=== PATIENT | male | born 1960 | race Caucasian/White ===

== ENCOUNTER 2016-10-08 05:11 | Inpatient (IN) ==
[2016-10-08 07:33] LABS: BASO% 0.2 % (0.0-0.8); EOS# 0.05 X1000 (0.0-0.7); EOS% 0.2 % (0.0-10.0); HEMATOCRIT 41.1 % (42.0-52.0); HEMOGLOBIN 13.7 g/dL (14.0-18.0); IMM GRAN% 0.4 % (0.0-0.5); LYMPH# 1.71 X1000 (1.2-3.4); LYMPH% 7.1 % (20.5-51.1); MCH 29.5 PG (27-31); MCHC 33.3 g/dL (33-37); MCV 88.4 FL (81-99); MONO# 1.26 X1000 (0.11-0.59); MONO% 5.3 % (1.7-9.3); MPV 9.5 FL (7.4-10.4); NEUT% 86.8 % (42.2-75.2); PLT 530 X1000 (130-400); RBC 4.65 XMIL (4.7-6.1)
[2016-10-08 07:36] LABS: MANUAL DIFF NEEDED? NO
[2016-10-08 07:39] LABS: AGAP 13; ALBUMIN 3.9 g/dL (3.5-5.0); ALKALINE PHOSPHATASE 80 U/L (32-122); BUN 10 mg/dL (8-22); CALCIUM 8.7 mg/dL (8.8-10.2); CHLORIDE 93 mmol/L (98-107); COSMO 273; GOT 18 U/L (10-34); GPT 15 U/L (10-44); POTASSIUM 3.3 mmol/L (3.5-5.1); SODIUM 136 mmol/L (136-145); TCO2 30 mmol/L (25-35); TOTAL PROTEIN 7.3 g/dL (6.3-8.3)
[2016-10-08] MEDS ORDERED: TYLENOL PO ONE (07:47)
[2016-10-08 08:03] LABS: URINE CULTURE PL NEEDED? NO; URINE SOURCE CLEAN CATCH
[2016-10-08 08:05] LABS: CLARITY CLEAR (CLEAR); COLOR YELLOW; URINE EPITHELIAL CELLS <10 /HPF (<10)
[2016-10-08 08:06] LABS: BILIRUBIN URINE NEGATIVE (NEGATIVE); BLOOD URINE NEGATIVE (NEGATIVE); GLUCOSE URINE NEGATIVE (NEGATIVE); LEUKOCYTES URINE NEGATIVE (NEGATIVE); NITRITE URINE NEGATIVE (NEGATIVE); PROTEIN URINE NEGATIVE (NEGATIVE); UROBILINOGEN URINE NORMAL
--- NOTE | 2016-10-08 08:50 | Diag Imaging Result Document ---
PROCEDURE NAME: ABDOMEN FLAT/UPRIGHT - 10/08/2016 SUPINE UPRIGHT ABDOMEN: FINDINGS: There is gas visible in mildly distended small bowel. There is gas visible in nondistended colon. There are multiple air fluid levels on the upright view. There is no indication of excessive retained fecal debris in the colon. There is no free air identified. IMPRESSION: Nonspecific mild gaseous small bowel distention. Enteritis may be a consideration. Correlation with clinical evaluation and/or followup is recommended.
[2016-10-08] MEDS ORDERED: NICODERM PATCH ONE (08:57)
[2016-10-08] MEDS ORDERED: NICODERM PATCH TD ONE (09:00)
--- NOTE | 2016-10-08 12:11 | Diag Imaging Result Document ---
PROCEDURE NAME: ABDOMEN/PELVIS W/CONTRAST - 10/08/2016 CT ABDOMEN AND PELVIS WITH CONTRAST: Exam performed with oral and intravenous contrast. A dose- reduction protocol was used. COMPARISON: No comparison exam. FINDINGS: The visualized lung bases appear clear. There are no substantial abnormalities of the liver, spleen, adrenal glands, or pancreas identified. There are no calcified gallstones or pericholecystic inflammation identified. The bilateral kidneys enhance homogeneously. There is a 0.9 cm solid-appearing nodular lesion which arises exophytically at the posterior medial lower left kidney. There is no hydronephrosis. There are no substantially enlarged lymph nodes identified. There are extensive inflammatory changes at and around the proximal sigmoid colon with wall thickening and infiltration of fat. There are multiple small gas bubbles and there are ill- defined fluid collections which extend from the posterior inflamed area at the proximal sigmoid colon superiorly and medially to the left lower quadrant. These findings are suspicious for sigmoid perforation with phlegmon or early abscess formation. There is no dominant or well- defined focal abscess identified at this time. There is no free intraperitoneal air identified elsewhere. IMPRESSION: Severe diverticulitis at proximal sigmoid colon. Evidence of sigmoid perforation with extraluminal gas and ill-defined fluid extending superiorly and medially from the inflamed sigmoid. The extraluminal gas and fluid is consistent with phlegmon or early abscess formation. There is no solitary well-defined dominant abscess identified at this time.
--- NOTE | 2016-10-08 13:36 | PROVIDER DOCUMENTATION ---
HPI-Abdominal Pain/GI Problem - General Source: patient - History of Present Illness-ABD Nature of Presenting Problems: Pt is 56 y/o M presents to the ED with abdominal pain. Pt states pain has been present for 3 days. Pt denies N/V/D. Abdominal Pain Onset Location: reports: generalized abdomen Pain Radiation: reports: no radiation Quality of Pain: reports: aching Severity in ED: reports: mild Onset/Duration: reports: 2 days ago, 3 days ago Timing: reports: still present, intermittent Activities at Onset: reports: light activity Exposure to sick contacts?: No Modifying Factors: improves with: nothing Associated Symptoms: reports: fever/chills (F). denies: anxiety, arm pain, back /neck pain, chest pain, constipation, cough, diaphoresis, diarrhea, dizziness, EENT symptoms, fatigue, genitourinary problems, headaches, heartburn, joint pain , loss of appetite, malaise, muscle aches, sinus congestion/drainage, nausea, rash, seizure, shortness of breath, sensory/motor loss, pain with inspiration, swelling/mass in abdomen, syncope, vomiting, weakness, trouble walking, other Last BM: this morning Dark Stools Present?: reports: none noticed Rectal Bleeding: reports: none Rectal Pain: reports: none Emesis Description: reports: none Bruising or Bleeding Gums?: No Similar Symptoms Previously?: Yes Recently seen or treated by another doctor?: No <Radha Kent - Last Filed: 10/08/16 13:38> <Edison Murphy - Last Filed: 10/08/16 13:41> - General Chief Complaint: Abdominal Pain Stated Complaint: ABD PAIN Time Seen by Provider: 10/08/16 06:55 Allergies/Adverse Reactions: Patient Allergies Allergy/AdvReac Type Severity Reaction Status Date / Time No Known Allergies Allergy Verified 10/08/16 05:27 Home Medications: Home Medication List Medication Instructions Recorded Confirmed Last Taken Type Omeprazole [Prilosec] 1 tab PO DIRECTED PRN 10/08/16 10/08/16 Unknown History Review of Systems - Adult - REVIEW OF SYSTEMS - ADULT Constitutional: reports: fever. denies: chills Eyes: reports: no symptoms reported Ears, Nose, Mouth & Throat: reports: no symptoms reported Cardiovascular: reports: irregular heart rate (tachy). denies: chest pain, heart murmur Respiratory: reports: no symptoms reported Gastrointestinal: reports: abdominal pain. denies: diarrhea, nausea, vomiting Genitourinary: reports: no symptoms reported Musculoskeletal: reports: no symptoms reported Integumentary: reports: no symptoms reported Neurological: reports: no symptoms reported Psychiatric: reports: no symptoms reported Endocrine: reports: no symptoms reported Hematologic/Lymphatic: reports: no symptoms reported Allergic/Immunologic: reports: no symptoms reported All Other Systems: Reviewed and Negative <Radha Kent - Last Filed: 10/08/16 13:38> Past History - Adult - PAST MEDICAL HISTORY-ADULT Review of Records: reports: Nursing Assessment Review, Medications Reviewed, Social history reviewed & non-contributory. Major Childhood Illnesses: reports: denies history Cardiovascular: reports: denies history Respiratory: reports: denies history Gastrointestinal: reports: denies history Obstetrical/Gynecological: reports: denies history Genitourinary: reports: denies history Musculoskeletal: reports: denies history Neurological: reports: denies history Endocrine/Immune: reports: denies history Other Conditions: reports: denies history - PRIOR SURGERIES/PROCEDURES Surgical/Procedure History: reports: appendectomy, orthopedic (extremity) (knee ), back/neck (back ) - IMMUNIZATION STATUS Childhood Immunizations: See Nurse Assessment Flu Vaccine: See Nurse Assessment - FAMILY HISTORY Family History: reviewed, not pertinent - SOCIAL HISTORY Smoking: cigarettes, greater than 1 pack/day Provider spent 3-5 mins advising pt. on dangers of tobacco.: Discussed manners to quit use, and f/u contacts for add'l counseling. Substance Use: denies Living Situation: family <Radha Kent - Last Filed: 10/08/16 13:38> Physical Exam-General - PHYSICAL EXAM-ADULT Initial Vital Signs Reviewed: Yes - CONSTITUTIONAL General Appearance: appears well, alert, mild distress - EYES Eyes: PERRL/EOMI, pink conjunctivae, fundi clear, no AV nicking - HEAD, EARS, NOSE, MOUTH & THROAT HENMT: normocephalic/atraumatic, moist mucous membranes, normal ENT inspection, TMs normal, pharynx normal - NECK Neck: non-tender, full range of motion, supple, normal inspection - RESPIRATORY Respiratory: chest non-tender, lungs clear, normal breath sounds, no pleuratic chest pain, no respiratory distress, no accessory muscle use - CARDIOVASCULAR Cardiovascular: normal peripheral pulses, no edema, no gallop, no JVD, no murmur - GASTROINTESTINAL (ABDOMEN) Abdominal Exam: normal bowel sounds, soft, no organomegaly, no pulsatile mass, tenderness - LYMPHATIC Lymphatic: no adenopathy - MUSCULOSKELETAL Back Exam: normal inspection, no CVA tenderness, no vertebral tenderness Extremity: normal range of motion, non-tender, normal gait, normal inspection, no pedal edema, no calf tenderness, normal capillary refill - SKIN Integumentary: normal color, normal turgor, warm/dry - NEUROLOGIC Neurologic: grossly normal - PSYCHIATRIC Psych/Mental Status: normal mood/affect, oriented x 3 <Radha Kent - Last Filed: 10/08/16 13:38> Progress - PLAN OF CARE/RESULTS Progress/Plan/Lab Results: Laboratory Tests 10/08/16 10/08/16 10/08/16 07:00 07:00 07:00 WBC 23.97 H RBC 4.65 L Hgb 13.7 L Hct 41.1 L MCV 88.4 MCH 29.5 MCHC 33.3 RDW Std Deviation 13.2 Plt Count 530 H MPV 9.5 Immature Gran % (Auto) 0.4 Neut % (Auto) 86.8 H Lymph % (Auto) 7.1 L [place] % (Auto) 5.3 Eos % (Auto) 0.2 Baso % (Auto) 0.2 Immature Gran # (Auto) 0.10 H Neut # (Auto) 20.80 H Lymph # (Auto) 1.71 [place] # (Auto) 1.26 H Eos # (Auto) 0.05 Baso # (Auto) 0.05 Segmented Neutrophils Cancelled Band Neutrophils Cancelled Lymphocytes Cancelled Monocytes Cancelled Eosinophils Cancelled Basophils Cancelled Metamyelocytes Cancelled Myelocytes Cancelled Promyelocytes Cancelled Nucleated RBCs Cancelled Atypical Lymphocytes Cancelled Blast Cells Cancelled Hypochromia Cancelled Vacuolization Cancelled Toxic Granulation Cancelled Dohle Bodies Cancelled Large Platelets Cancelled Polychromasia Cancelled Poikilocytosis Cancelled Basophilic Stippling Cancelled Anisocytosis Cancelled Microcytosis Cancelled Macrocytosis Cancelled Spherocytes Cancelled Sickle Cells Cancelled Target Cells Cancelled Ovalocytes Cancelled Stomatocytes Cancelled [place] Bodies Cancelled [place] Cells Cancelled Unidentified Cells Cancelled Schistocytes Cancelled Sodium 136 Potassium 3.3 L Chloride 93 L Carbon Dioxide 30 Anion Gap 13 BUN 10 Creatinine 0.9 Estimated GFR/1.73 m2 > 60 BUN/Creatinine Ratio 11 Glucose 130 H Calculated Osmolality 273 Calcium 8.7 L Total Bilirubin 1.00 AST 18 ALT 15 Alkaline Phosphatase 80 Total Protein 7.3 Albumin 3.9 Globulin 3.0 Albumin/Globulin Ratio 1.0 Amylase Lipase 23 Urine Source Urine Color Urine Clarity Urine Turbidity Urine pH Ur Specific [place] Urine Protein Ur Glucose (Stick) Urine Ketones Ur Ketones (Stick) Urine Blood Urine Nitrite Urine Bilirubin Urine Urobilinogen Urobilinogen Dipstick Urine Leukocytes Urine WBC (Auto) Urine RBC (Auto) U Epithel Cells (Auto) Urine Bacteria (Auto) Urine Microscopic RBC Urine WBC Ur Epithelial Cells Urine Glucose 10/08/16 10/08/16 10/08/16 07:00 07:03 07:53 WBC RBC Hgb Hct MCV MCH MCHC RDW Std Deviation Plt Count MPV Immature Gran % (Auto) Neut % (Auto) Lymph % (Auto) [place] % (Auto) Eos % (Auto) Baso % (Auto) Immature Gran # (Auto) Neut # (Auto) Lymph # (Auto) [place] # (Auto) Eos # (Auto) Baso # (Auto) Segmented Neutrophils Band Neutrophils Lymphocytes Monocytes Eosinophils Basophils Metamyelocytes Myelocytes Promyelocytes Nucleated RBCs Atypical Lymphocytes Blast Cells Hypochromia Vacuolization Toxic Granulation Dohle Bodies Large Platelets Polychromasia Poikilocytosis Basophilic Stippling Anisocytosis Microcytosis Macrocytosis Spherocytes Sickle Cells Target Cells Ovalocytes Stomatocytes [place] Bodies [place] Cells Unidentified Cells Schistocytes Sodium Potassium Chloride Carbon Dioxide Anion Gap BUN Creatinine Estimated GFR/1.73 m2 BUN/Creatinine Ratio Glucose Calculated Osmolality Calcium Total Bilirubin AST ALT Alkaline Phosphatase Total Protein Albumin Globulin Albumin/Globulin Ratio Amylase 61 Lipase Urine Source Cancelled CLEAN CATCH Urine Color Cancelled YELLOW Urine Clarity CLEAR Urine Turbidity Cancelled Urine pH Cancelled 7.0 Ur Specific [place] Cancelled 1.000 Urine Protein Cancelled NEGATIVE Ur Glucose (Stick) Cancelled Urine Ketones NEGATIVE Ur Ketones (Stick) Cancelled Urine Blood Cancelled NEGATIVE Urine Nitrite Cancelled NEGATIVE Urine Bilirubin Cancelled NEGATIVE Urine Urobilinogen NORMAL Urobilinogen Dipstick Cancelled Urine Leukocytes Cancelled Urine WBC (Auto) Cancelled Urine RBC (Auto) Cancelled U Epithel Cells (Auto) Cancelled Urine Bacteria (Auto) Cancelled Urine Microscopic RBC Not Reportable Urine WBC NEGATIVE Ur Epithelial Cells <10 Urine Glucose NEGATIVE Orders Category Date Time Status Admit - [facility] - [facility] Routine AdmDCTranf 10/08/16 13:28 Ordered NPO Diet 10/08/16 13:27 Active ABDOMEN FLAT/UPRIGHT [RAD] Stat Exams 10/08/16 07:03 Completed ABDOMEN/PELVIS W/CONTRAST [CT] Stat Exams 10/08/16 09:15 Draft AMYLASE [CHEM] Stat Lab 10/08/16 07:00 Completed CBC WITH ELECTRONIC DIFF [HEME] Stat Lab 10/08/16 07:00 Completed CHLAMYDIA AND GC BY PCR URINE [SRINIVASAN] Stat Lab 10/08/16 06:45 Received CMP [COMPREHENSIVE METABOLIC PANEL] [CHEM] Stat Lab 10/08/16 07:00 Completed LIPASE [CHEM] Stat Lab 10/08/16 07:[address] W/POSS RFLX CULT [URINALYSIS] Stat Lab 10/08/16 07:53 Completed Acetaminophen [Tylenol] Med 10/08/16 07:47 Discontinued 1,000 mg PO NOW ONE Nicotine Patch [Nicoderm Patch] Med 10/08/16 08:57 Discontinued 21 mg .ROUTE .STK-MED ONE Nicotine Patch [Nicoderm Patch] Med 10/08/16 09:00 Discontinued 21 mg TD NOW ONE Piperacil/Tazobact 3.375 gm/Ns [Zosyn 3.375 gm/Ns] 50 Med 10/08/16 14:00 Ordered ml IV Q6HR Transfer/Admit Order [TRANSFER] Routine Transfer 10/08/16 13:29 Ordered Vital Signs - 24 hr 10/08/16 10/08/16 10/08/16 05:19 07:46 09:00 Temperature 100 F H 101.3 F H 97.9 F Pulse Rate 116 H 119 H Respiratory 20 18 Rate Blood Pressure 112/76 129/74 O2 Sat by Pulse 100 96 Oximetry 10/08/16 12:34 Temperature 100 F H Pulse Rate 115 H Respiratory 22 Rate Blood Pressure 120/89 O2 Sat by Pulse 96 Oximetry - XRAY 1 XRAY: Bilateral XRAY Study: Abdomen Impression: Abnormal (enteritis may be a consideration. correlation with clinical evaluation and/or followup is recommended.) XRAY Interpretation: nonspecific mild gaseous small bowel distention. - CT/MRI 1 CT Study: Abdomen Impression: Abnormal (evidence of perforation with ill-defined extraluminal gas and fluid extending above sigmoid to LLQ) CT Results: severe diverticulitis at proximal sigmoid colon; - CONSULTS/PCP/HOSPITALIST Notification #1 *Consult/PCP/Hospitalist*: Dr. Carrasquillo Time Discussed: 13:30 (Dr. Carrasquillo accepted admit ) Reason/Comments: Dr. Murphy consulted with Dr. Carrasquillo about admit of Pt Consult Disposition: Admit <Radha Kent - Last Filed: 10/08/16 13:38> Departure <Radha Kent - Last Filed: 10/08/16 13:38> - Departure Time of Disposition Order: 13:41 Certified Medical Emergency: Emergent <Edison Murphy - Last Filed: 10/08/16 13:41> - Departure DIAGNOSIS: Diverticulitis large intestine Qualifiers: Diverticulitis bleeding: without bleeding Diverticulitis complication: with perforation Qualified Code(s): K57.20 - Diverticulitis of large intestine with perforation and abscess without bleeding Disposition: ADMITTED INPATIENT 09 Condition: Stable Referrals: None,PCP [Primary Care Provider] - Attestation - Scribe Verification/Attestation Scribe:: Radha Kent Acting as Scribe for:: Edison Murphy Scribe documention review:: This chart was documented by a scribe and accurately reflects the service the provider performed and the decisions made by the provider. <Radha Kent - Last Filed: 10/08/16 13:38> Physician Attestation
[2016-10-08] MEDS ORDERED: ZOSYN 3.375 GM/NS 50 ML IV SCH (14:00)
[2016-10-08] MEDS: NS 1,000 ML IV ONE ×2 (17:52→18:47)
[2016-10-08] MEDS ORDERED: NS 1,000 ML IV SCH (19:00)
--- NOTE | 2016-10-08 19:07 | HISTORY AND PHYSICAL ---
CHIEF COMPLAINT: Abdominal pain. HISTORY: This is a 56-year-old white male who reports a 2-week history of abdominal pain as well as fever. Today it got so bad that he came in for evaluation to [facility]. He does report abdominal pain with a 2-week history of intermittent fever over 100. CT scan shows a diverticular abscess. He does report diminished appetite but he has been able to eat some. His bowels have moved some. HOME MEDICATIONS: Include Prilosec. ALLERGIES: He has no known drug allergies. PAST SURGICAL HISTORY: He had a previous open appendectomy. He also had a knee operation and a back neck operation. FAMILY HISTORY: Noncontributory. SOCIAL HISTORY: He does smoke greater than a pack a day. He denies alcohol or illicit drug use. REVIEW OF SYSTEMS: He does report chills. He does report abdominal pain. He denies diarrhea, nausea or vomiting. All other subsystems are negative. PHYSICAL EXAMINATION: VITAL SIGNS: Temp is 100.3 degrees, heart rate is in the 120-160 range, blood pressure is 115/78. NECK: No cervical adenopathy. LUNGS: Bilateral breath sounds. HEART: Regular rate and rhythm. He is tachycardic. ABDOMEN: He is diffusely tender especially in the left lower quadrant. VASCULAR: Rebound femoral pulses are present. No peripheral edema. NEUROLOGIC: He is awake and alert. DIAGNOSTICS/LABS: White count is 24,000, left shift. ASSESSMENT: Acute diverticulitis with abscess and peritonitis. PLAN: Laparotomy with resection of the diseased segment of colon, end colostomy and Barb's. We will drain the abscess as well. I discussed this with him. He understands and agrees to proceed.
[2016-10-08] MEDS: ZOSYN 3.375 GM/NS 50 ML IV SCH (19:45)
[2016-10-08] MEDS ORDERED: NEOSPORIN G.U. IRRIGANT ONE (20:17)
[2016-10-08 20:44] LABS: URINE MICRO REVIEW NEEDED? NO; URINE SOURCE CATH
[2016-10-08 20:56] LABS: BILIRUBIN URINE NEGATIVE (NEGATIVE); BLOOD URINE NEGATIVE (NEGATIVE); COLOR YELLOW; GLUCOSE URINE NEGATIVE (NEGATIVE); LEUKOCYTES URINE NEGATIVE (NEGATIVE); NITRITE URINE NEGATIVE (NEGATIVE); PH URINE 6.5; PROTEIN URINE NEGATIVE (NEGATIVE); SP GRAVITY URINE 1.017; TURBIDITY URINE CLEAR (CLEAR); UROBILINOGEN URINE NORMAL (NORMAL)
[2016-10-08 20:59] LABS: UR EPITHELIAL CELLS <10 /HPF (<10); URINE BACTERIA NEGATIVE /HPF; URINE RBC <10 /HPF (<10); URINE WBC <10 /HPF (<10)
[2016-10-08] MEDS ORDERED: TYLENOL PO PRN (21:13)
[2016-10-08] MEDS: MORPHINE ONE ×2 (21:20→21:25)
[2016-10-08] MEDS ORDERED: FENTANYL ONE (21:28)
[2016-10-08] MEDS ORDERED: PHENERGAN ONE (21:31)
[2016-10-08] MEDS: NS 1,000 ML IV SCH (22:15)
[2016-10-08] MEDS: PROTONIX IV SCH (23:02)
[2016-10-08] MEDS: SODIUM CHLORIDE 0.9% INJ SCH (23:02)
[2016-10-08] MEDS: DILAUDID IV PRN (23:33)
[2016-10-09] MEDS: ZOSYN 3.375 GM/NS 50 ML IV SCH ×4 (02:09→20:29)
[2016-10-09] MEDS: DILAUDID IV PRN ×7 (04:16→23:31)
--- NOTE | 2016-10-09 04:34 | OPERATIVE NOTE ---
PROCEDURE DATE: 10/08/2016 PROCEDURE PERFORMED: Exploratory laparotomy, sigmoid colon resection, construction of end colostomy in the Barb's pouch, drainage of intra-abdominal abscess. SURGEON: Lizandro Carrasquillo MD. PAIL BAILER: Felipa Eason RN. PREOPERATIVE DIAGNOSIS: Diverticular abscess. POSTOPERATIVE DIAGNOSIS: Diverticular abscess. DESCRIPTION OF PROCEDURE: Satisfactory general endotracheal anesthesia was achieved. The abdomen was prepped and draped in a sterile fashion. A midline incision was made from just above the umbilicus down to the pubis. We carried our incision through the subcutaneous tissue. We entered the midline fascia to the extent of the skin incision. Upon entering the abdominal cavity, we noted the sigmoid to be obviously diseased, swollen, and indurated. We incised along the white line of Toldt and entered the abscess cavity and then suctioned out the cavity. We cultured the peritoneal fluid. We then dissected distally to the distal sigmoid. Here, we cleaned off the sigmoid, used a SAVANNAH blue cartridge 80 mm long, and stapled and divided the distal sigmoid. We then dissected the small bowel away from the sigmoid because of the inflammatory process. We continued to dissect along the white line of Toldt until we got above the diseased segment and again cleaned it off using the LigaSure and the cautery, and then stapled that with another SAVANNAH 80 blue cartridge. We then divided the mesentery using the LigaSure until we could hand off the diseased sigmoid segment. We placed 2-0 Prolene on each of the staple lines of our Barb's pouch to yenni it for future reference. We then copiously irrigated out the sigmoid mesentery area with irrigation and plain irrigation. We cleaned off the proximal sigmoid enough that we could deliver it in through the abdominal wall as the stoma. I changed gloves at this point. We grasped the fascia with a No. We grasped the skin with a No in the left mid abdomen and excised an island of skin. We then dissected down to the fascia, incised the anterior rectus sheath vertically and transversely, spread the fibers of the rectus muscle, divided the posterior rectus sheath, and entered the abdominal cavity. We then introduced a small wound protecting device. We were able to grasp the end of the proximal descending colon and bring it through the stoma without tension. We removed the wound closure device. We placed a Saw drain first, bringing it out the left lower quadrant, placing it into the left gutter along the sigmoid colon resected area. We then closed the peritoneum with a 2-0 chromic. We closed the fascia with a running #2 Prolene. Irrigated out the subcutaneous tissue copiously. Closed the skin with joshua. We covered the staple line with a sterile towel. We then excised the staple line of the end of the sigmoid. I then matured it with 3-0 Polysorb simple stitches, approximating the mucosa to the skin edge. We placed a flange over the skin around the stoma and then placed the bag over that. A sterile island dressing was placed on the midline. I failed to mention that 2-0 silk was used to secure the skin of the drain at the skin level. He tolerated the procedure satisfactorily and was sent to the recovery room in satisfactory condition. MTDD
[2016-10-09] MEDS: NS 1,000 ML IV SCH ×2 (06:17→14:06)
[2016-10-09 06:40] LABS: HEMATOCRIT 37.6 % (42.0-52.0); HEMOGLOBIN 12.4 g/dL (14.0-18.0); IMM GRAN# 0.06 X1000 (0.0-0.04); IMM GRAN% 0.3 % (0.0-0.5); LYMPH# 0.69 X1000 (1.2-3.4); LYMPH% 3.2 % (20.5-51.1); MANUAL DIFF NEEDED? YES; MCH 29.7 PG (27-31); MCV 90.2 FL (81-99); MONO# 0.45 X1000 (0.11-0.59); MONO% 2.1 % (1.7-9.3); MPV 9.9 FL (7.4-10.4); NEUT% 94.4 % (42.2-75.2); PLT 433 X1000 (130-400); RBC 4.17 XMIL (4.7-6.1)
[2016-10-09 07:15] LABS: AGAP 14; ALKALINE PHOSPHATASE 82 U/L (32-122); BUN 13 mg/dL (8-22); CALCIUM 7.7 mg/dL (8.8-10.2); CHLORIDE 100 mmol/L (98-107); COSMO 287; GOT 13 U/L (10-34); GPT 12 U/L (10-44); POTASSIUM 3.4 mmol/L (3.5-5.1); SODIUM 142 mmol/L (136-145); TCO2 28 mmol/L (25-35); TOTAL BILIRUBIN 1.03 mg/dL (0.20-1.00)
[2016-10-09 07:41] LABS: BANDS 4 % (0-1); LYMPHS 2 % (21-51); MONO 1 % (1-9)
[2016-10-09] MEDS ORDERED: QUELICIN (DOSE) ONE (09:55)
[2016-10-09] MEDS ORDERED: NEOSTIGMINE ONE (09:55)
[2016-10-09] MEDS ORDERED: CLAVE SECONDARY SET 11953 ONE (09:55)
[2016-10-09] MEDS ORDERED: ZEMURON ONE (09:55)
[2016-10-09] MEDS ORDERED: ZOFRAN ONE (09:55)
[2016-10-09] MEDS ORDERED: NORCURON ONE (09:55)
[2016-10-09] MEDS ORDERED: XYLOCAINE-MPF 2% ONE (09:55)
[2016-10-09] MEDS ORDERED: LR 3,000 ML ONE (09:55)
[2016-10-09] MEDS ORDERED: ROBINUL ONE (09:55)
[2016-10-09] MEDS ORDERED: ANESTHESIA PB SET 88 IN 5742 ONE (09:55)
[2016-10-09] MEDS ORDERED: DECADRON ONE (09:55)
[2016-10-09] MEDS: NICODERM PATCH TD SCH (14:51)
[2016-10-09] MEDS: NS + KCL 20 MEQ 1,000 ML IV SCH (14:55)
[2016-10-09] MEDS: PROTONIX IV SCH (20:31)
[2016-10-09] MEDS: SODIUM CHLORIDE 0.9% INJ SCH (20:31)
[2016-10-10] MEDS: NS + KCL 20 MEQ 1,000 ML IV SCH ×3 (01:29→15:29)
[2016-10-10] MEDS: ZOSYN 3.375 GM/NS 50 ML IV SCH ×4 (01:29→21:59)
[2016-10-10] MEDS: DILAUDID IV PRN ×3 (02:40→17:57)
[2016-10-10 05:52] LABS: HEMATOCRIT 35.7 % (42.0-52.0); HEMOGLOBIN 11.8 g/dL (14.0-18.0); IMM GRAN# 0.09 X1000 (0.0-0.04); IMM GRAN% 0.4 % (0.0-0.5); LYMPH# 1.24 X1000 (1.2-3.4); LYMPH% 5.3 % (20.5-51.1); MANUAL DIFF NEEDED? NO; MCHC 33.1 g/dL (33-37); MCV 90.8 FL (81-99); MONO# 0.81 X1000 (0.11-0.59); MONO% 3.5 % (1.7-9.3); MPV 9.7 FL (7.4-10.4); NEUT% 90.8 % (42.2-75.2); PLT 442 X1000 (130-400); RBC 3.93 XMIL (4.7-6.1)
[2016-10-10 06:09] LABS: AGAP 13; BUN 17 mg/dL (8-22); CHLORIDE 107 mmol/L (98-107); COSMO 290; POTASSIUM 3.4 mmol/L (3.5-5.1); SODIUM 145 mmol/L (136-145); TCO2 25 mmol/L (25-35)
[2016-10-10] MEDS: NICODERM PATCH TD SCH (08:18)
[2016-10-10] MEDS: SODIUM CHLORIDE 0.9% INJ SCH (21:58)
[2016-10-10] MEDS: PROTONIX IV SCH (21:59)
[2016-10-11] MEDS: DILAUDID IV PRN ×3 (00:03→17:30)
[2016-10-11] MEDS: ZOSYN 3.375 GM/NS 50 ML IV SCH ×4 (01:03→20:21)
[2016-10-11] MEDS: NS + KCL 20 MEQ 1,000 ML IV SCH ×2 (01:04→20:22)
[2016-10-11 06:02] LABS: MANUAL DIFF NEEDED? NO
[2016-10-11 06:18] LABS: BASO% 0.2 % (0.0-0.8); EOS# 0.12 X1000 (0.0-0.7); EOS% 1.1 % (0.0-10.0); HEMATOCRIT 37.2 % (42.0-52.0); HEMOGLOBIN 12.1 g/dL (14.0-18.0); LYMPH# 1.93 X1000 (1.2-3.4); LYMPH% 17.4 % (20.5-51.1); MCH 29.9 PG (27-31); MCHC 32.5 g/dL (33-37); MCV 91.9 FL (81-99); MONO# 0.71 X1000 (0.11-0.59); MONO% 6.4 % (1.7-9.3); MPV 9.6 FL (7.4-10.4); NEUT% 74.9 % (42.2-75.2); PLT 455 X1000 (130-400); RBC 4.05 XMIL (4.7-6.1)
[2016-10-11 06:27] LABS: AGAP 13; BUN 9 mg/dL (8-22); CALCIUM 7.6 mg/dL (8.8-10.2); CHLORIDE 102 mmol/L (98-107); COSMO 282; POTASSIUM 3.3 mmol/L (3.5-5.1); SODIUM 142 mmol/L (136-145); TCO2 27 mmol/L (25-35)
[2016-10-11] MEDS: NICODERM PATCH TD SCH (08:19)
[2016-10-11] MEDS: PROTONIX IV SCH (20:21)
[2016-10-11] MEDS: SODIUM CHLORIDE 0.9% INJ SCH (20:22)
[2016-10-12] MEDS: ZOSYN 3.375 GM/NS 50 ML IV SCH ×4 (01:51→19:55)
[2016-10-12] MEDS: DILAUDID IV PRN (03:24)
[2016-10-12 06:21] LABS: MANUAL DIFF NEEDED? NO
[2016-10-12 06:29] LABS: BASO% 0.4 % (0.0-0.8); EOS# 0.25 X1000 (0.0-0.7); EOS% 2.6 % (0.0-10.0); HEMATOCRIT 40.1 % (42.0-52.0); HEMOGLOBIN 12.9 g/dL (14.0-18.0); LYMPH# 1.92 X1000 (1.2-3.4); LYMPH% 20.2 % (20.5-51.1); MCH 29.3 PG (27-31); MCHC 32.2 g/dL (33-37); MCV 91.1 FL (81-99); MONO# 0.51 X1000 (0.11-0.59); MONO% 5.4 % (1.7-9.3); MPV 9.5 FL (7.4-10.4); NEUT% 71.4 % (42.2-75.2); PLT 544 X1000 (130-400)
[2016-10-12] MEDS: NICODERM PATCH TD SCH (08:19)
[2016-10-12] MEDS: NS + KCL 20 MEQ 1,000 ML IV SCH ×2 (08:26→22:45)
[2016-10-12] MEDS: LOVENOX SUBQ SCH ×2 (19:55→21:53)
[2016-10-12] MEDS: NORCO-7.5 PO PRN (22:44)
[2016-10-13] MEDS: ZOSYN 3.375 GM/NS 50 ML IV SCH ×4 (03:10→23:25)
[2016-10-13] MEDS: NORCO-7.5 PO PRN ×2 (03:15→23:25)
[2016-10-13] MEDS: PRILOSEC PO SCH (06:28)
--- NOTE | 2016-10-13 10:06 | PROGRESS NOTE ---
DATE: 10/13/2016 SUBJECTIVE: Patient doing well. Tolerated his diet. No major issues. OBJECTIVE: Vital Signs: Patient is currently afebrile. His vital signs have been stable. General: No acute distress. Resting comfortably. Cardiovascular: Regular rate and rhythm. Lungs: Grossly clear. Abdomen: Soft, nondistended. Appropriately tender. Ostomy functioning. Incision is healing well. ASSESSMENT AND PLAN: A 56-year-old male, postoperative day #5 from Barb's procedure for perforated diverticulitis. Postoperative state. At this time, patient's diet has been advanced. His drain has been removed. We will likely keep him on antibiotics for another 24 hours and potentially transfer him over to p.o. antibiotics and discharge him soon. cc: MD Lizandro Thomas MD MTDD
[2016-10-13] MEDS: NICODERM PATCH TD SCH (11:20)
[2016-10-13] MEDS: NS + KCL 20 MEQ 1,000 ML IV SCH (11:20)
[2016-10-13] MEDS: LOVENOX SUBQ SCH (23:25)
[2016-10-14] MEDS: ZOSYN 3.375 GM/NS 50 ML IV SCH (04:02)
[2016-10-14] MEDS: NORCO-7.5 PO PRN (04:02)
[2016-10-14] MEDS: NS + KCL 20 MEQ 1,000 ML IV SCH (04:02)
[2016-10-14] MEDS: PRILOSEC PO SCH (06:54)
--- NOTE | 2016-10-14 07:15 | PROGRESS NOTE ---
DATE: 10/14/2016 SUBJECTIVE: Patient doing well. Tolerating a diet. No major issues. OBJECTIVE: Vital Signs: Patient is currently afebrile. His vital signs have been stable. General Examination: No acute distress. Cardiovascular: Regular rate and rhythm. Lungs: Grossly clear. Abdomen: Soft, nondistended. Appropriately tender. Ostomy functioning. Incision healing well. ASSESSMENT AND PLAN: A 56-year-old male, status post Barb's procedure for perforated diverticulitis. Currently postoperative day #6. Postoperative state. At this time, the patient's diet has been advanced. He is tolerating a regular diet. His ostomy is functioning. He feels content taking care of his ostomy. We will discharge him on antibiotics, have him follow up with Dr. Carrasquillo in 1-2 weeks. I will send him home on Augmentin and pain medicine. cc: MD Lizandro Thomas MD
[2016-10-14] MEDS: NICODERM PATCH TD SCH (08:24)
[2016-10-14 08:26] VITALS: BP 130/91
--- NOTE | 2016-10-16 02:03 | DISCHARGE SUMMARY ---
ADMISSION DATE: 10/08/2016 DISCHARGE DATE: 10/14/2016 PRIMARY DISCHARGE DIAGNOSIS: Acute diverticulitis with perforation, and diverticular abscess. PRIMARY PROCEDURES: Exploratory laparotomy, sigmoid colon resection, construction of end colostomy and a Barb's pouch. HISTORY: A 56-year-old gentleman, presenting to the emergency department at [facility], with a 2- week history of abdominal pain and fever. CT scan showed a diverticular abscess with some free air. DIAGNOSTICS/LABS: White count was 24,000 on admission. After admission, he was taken to the operating room and underwent the above procedure. Postoperatively, maintained on Zosyn, a drain was left in place. He used a nicotine patch for his nicotine addiction. His Pepper was removed on the 2nd postoperative day. We started on clear liquids. The ET nurse was consulted, and saw him about his colostomy care. We did advance his diet subsequently. On 10/12, on postop day 4, able to remove his drain. White count a come down to 9,500. By 10/14, he was ready for discharge. He was eating. His colostomy was functioning. His wound was fine. He knew how to take care of his colostomy. DISCHARGE MEDICATION: He was discharged home on Augmentin. FOLLOWUP: He is to return to the office and see me in a week. cc: Lizandro Carrasquillo MD
== END 2016-10-14 08:35 | disposition home or self-care (01) ==
LOC: P.ED 05:11 → P.EDIPHOLD 13:54 → 4N 13:54
PROVIDERS: ADMIT Surgery; ATTEND Surgery

== ENCOUNTER 2019-01-07 11:10 | Inpatient (IN) ==
--- NOTE | 2018-12-30 14:13 | EKG Report ---
Test Performed on : 12/30/2018 1:54:29 PM Test Reason : PAT Blood Pressure : / mmHG Vent. Rate : 073 BPM Atrial Rate : 073 BPM P-R Int : 184 ms QRS Dur : 086 ms QT Int : 362 ms P-R-T Axes : 063 035 082 degrees QTc Int : 398 ms Normal sinus rhythm. Nonspecific T wave abnormality Abnormal ECG No previous ECGs available Confirmed by Braxton KANG, Marvel Kohli ([id number]) on 12/30/2018 7:30:14 PM
[2018-12-30 14:25] LABS: HEMATOCRIT 44.8 % (42.0-52.0); HEMOGLOBIN 15.1 g/dL (14.0-18.0); MCH 30.1 PG (27-31); MCHC 33.7 g/dL (33-37); MCV 89.4 FL (81-99); MPV 9.6 FL (7.4-10.4); RBC 5.01 XMIL (4.7-6.1); RDW 13.4 % (11.5-14.5); WBC 7.88 X1000 (4.8-10.8)
[2018-12-30 15:12] LABS: AGAP 12; BUN 13 mg/dL (8-22); CALCIUM 9.5 mg/dL (8.8-10.2); CHLORIDE 100 mmol/L (98-107); COSMO 288; ESTIMATED GFR > 60; GLUCOSE 217 mg/dL (70-104); POTASSIUM 4.1 mmol/L (3.5-5.1); SODIUM 141 mmol/L (136-145); TCO2 29 mmol/L (25-35)
[~2019-01-07 11:10] MED LIST: DIPRIVAN 1% ONE; NORCURON ONE; QUELICIN (DOSE) ONE; SODIUM CHLORIDE 0.9% 10 ML ONE; XYLOCAINE-MPF 2% ONE
[2019-01-07] MEDS ORDERED: ENTEREG ONE (12:15)
[2019-01-07] MEDS ORDERED: PEPCID ONE (12:15)
[2019-01-07] MEDS ORDERED: VALIUM ONE (12:16)
[2019-01-07] MEDS ORDERED: INVANZ 1 GM/NS 0 GM/0 ML IVPB ONE (12:16)
[2019-01-07] MEDS ORDERED: LR 1,000 ML ONE (12:16)
[2019-01-07] MEDS ORDERED: INVANZ 1 GM/NS 1 GM/50 ML IVPB ONE (12:18)
[2019-01-07] MEDS ORDERED: MORPHINE ONE (13:37)
[2019-01-07] MEDS ORDERED: TORADOL ONE (13:37)
[2019-01-07] MEDS ORDERED: SODIUM CHLORIDE 0.9% 10 ML ONE (13:41)
[2019-01-07] MEDS ORDERED: NEO-SYNEPHRINE ONE (13:41)
[2019-01-07] MEDS ORDERED: NORCURON ONE (13:55)
[2019-01-07] MEDS ORDERED: OFIRMEV 1000 MG/ISOTONIC SOLN 1,000 MG/100 ML BOTTLE ONE (14:01)
[2019-01-07 14:12] LABS: URINE SOURCE CATH
[2019-01-07 14:18] LABS: BILIRUBIN URINE NEGATIVE (NEGATIVE); BLOOD URINE NEGATIVE (NEGATIVE); COLOR YELLOW; GLUCOSE URINE 500 mg/dL (NEGATIVE); KETONE URINE NEGATIVE (NEGATIVE); LEUKOCYTES URINE NEGATIVE (NEGATIVE); NITRITE URINE NEGATIVE (NEGATIVE); PROTEIN URINE TRACE mg/dL (NEGATIVE); SP GRAVITY URINE 1.021; TURBIDITY URINE CLEAR (CLEAR); UR EPITHELIAL CELLS <10 /HPF (<10); URINE BACTERIA NEGATIVE /HPF; URINE RBC <10 /HPF (<10); URINE WBC <10 /HPF (<10); UROBILINOGEN URINE NORMAL (NORMAL)
[2019-01-07] MEDS ORDERED: ROBINUL ONE (14:40)
[2019-01-07] MEDS ORDERED: NEOSTIGMINE ONE (14:41)
[2019-01-07] MEDS ORDERED: NS 1,000 ML ONE (15:44)
[2019-01-07] MEDS: DILAUDID ONE ×4 (15:47→16:23)
--- NOTE | 2019-01-07 15:57 | OPERATIVE NOTE ---
DATE: 01/07/2019 PROCEDURE PERFORMED: Open closure of end colostomy. SURGEON: Lizandro Carrasquillo MD. TELETYPEWRITER INSTALLER: Dada Tapia RN. 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 DESCRIPTION OF PROCEDURE: Satisfactory general endotracheal anesthesia was achieved, the patient was placed in Marvel stirrups. We closed the stoma with a 3-0 Prolene stitch. The abdomen was then prepped and draped in a sterile fashion. An Ioban drape was used. We made a midline incision from above the umbilicus down to the pubis. We carried our incision through the subcutaneous fat, through the midline fascia, entering the abdominal cavity. We removed the previously-placed Prolene fascial stitches. On opening the abdominal cavity, we placed the patient in Trendelenburg. We lysed adhesions in the pelvis, attaching the omentum from the anterior abdominal wall, and incising adhesions from the small bowel to the pelvis. We identified the Barb's pouch and identified the Prolene stitches on it. We then used a Bookwalter retractor and positioned it. We placed lateral abdominal wall retractors and 1 inferiorly. We then dissected over to the stoma and used a SAVANNAH-60 blue cartridge to staple and divide the stoma right as it entered the abdominal wall. We then replaced our lateral retractor. We incised the adhesions between the descending colon so that would lay down toward the distal sigmoid in the pelvis. We then cleaned off the end of the colon of the Barb's pouch. We cleaned off the end of the proximal bowel as well. We then used 3-0 silk seromuscular stitches posteriorly. Cut off the staple lines of both bowel and then used a 3-0 Polysorb running locking stitch posteriorly, changed to a Jack stitch anteriorly. Then, finally 3-0 silks in the Lembert fashion; this thereby finished an end-to-end 2-layer anastomosis. We changed gloves at this point. I decided to use a Saw drain in the wound; brought it out the right lower quadrant and laid it in the pelvis. We irrigated and aspirated. The effluent was clear. We then took the patient out of Trendelenburg. We allowed the small bowel to fall back to its normal position. We removed the laps. We then closed the peritoneum with a 2-0 chromic. We closed the fascia with the running #2 Prolene. The skin was closed with joshua. We covered the midline staple line, exposed the left lower quadrant stoma. We then incised the stoma at the mucocutaneous junction. After circumferentially making this incision, we then excised the stoma and handed it off as a specimen. We then closed the abdominal wall with interrupted 0 Surgilon [id number] stitches. We copiously irrigated out subcutaneous tissue, then closed the subcutaneous tissue with 3-0 Polysorb simple stitches and then closed the skin with joshua transversely. A sterile dressing was applied there as well. Tolerated the procedure satisfactorily. Sent to the recovery room in satisfactory condition. cc: Lizandro Carrasquillo MD
[2019-01-07] MEDS ORDERED: PHENERGAN ONE (16:09)
[2019-01-07] MEDS: LOVENOX SUBQ SCH (18:33)
[2019-01-07] MEDS: NS 1,000 ML IV SCH (18:42)
[2019-01-07] MEDS: DILAUDID IV PRN (20:02)
[2019-01-07] MEDS: PERIDEX MT SCH (20:02)
[2019-01-07] MEDS: LIPITOR PO SCH (20:02)
[2019-01-07] MEDS ORDERED: PERIDEX MT SCH (21:00)
[2019-01-07] MEDS: ZOFRAN IV PRN (22:20)
[2019-01-07] MEDS: OFIRMEV 1000 MG/ISOTONIC SOLN 1,000 MG/100 ML BOTTLE IV SCH (22:20)
[2019-01-08] MEDS: NS 1,000 ML IV SCH ×3 (01:48→13:43)
[2019-01-08] MEDS: DILAUDID IV PRN ×4 (01:48→15:15)
[2019-01-08] MEDS: OFIRMEV 1000 MG/ISOTONIC SOLN 1,000 MG/100 ML BOTTLE IV SCH ×3 (04:47→16:31)
[2019-01-08 06:14] LABS: BASO# 0.03 X1000 (0.0-0.2); BASO% 0.2 % (0.0-0.8); EOS# 0.05 X1000 (0.0-0.7); EOS% 0.4 % (0.0-10.0); HEMATOCRIT 40.4 % (42.0-52.0); HEMOGLOBIN 13.7 g/dL (14.0-18.0); IMM GRAN# 0.02 X1000 (0.0-0.04); IMM GRAN% 0.2 % (0.0-0.5); LYMPH# 1.53 X1000 (1.2-3.4); LYMPH% 12.6 % (20.5-51.1); MCH 30.2 PG (27-31); MCHC 33.9 g/dL (33-37); MCV 89.2 FL (81-99); MONO# 0.72 X1000 (0.11-0.59); MPV 10.2 FL (7.4-10.4); NEUT# 9.75 X1000 (1.4-6.5); NEUT% 80.6 % (42.2-75.2); PLT 188 X1000 (130-400); RBC 4.53 XMIL (4.7-6.1); RDW 13.5 % (11.5-14.5)
[2019-01-08] MEDS: SYNTHROID PO SCH (06:26)
[2019-01-08 06:35] LABS: AGAP 12; BUN 10 mg/dL (8-22); CALCIUM 8.1 mg/dL (8.8-10.2); CHLORIDE 100 mmol/L (98-107); COSMO 280; ESTIMATED GFR > 60; GLUCOSE 156 mg/dL (70-104); POTASSIUM 3.5 mmol/L (3.5-5.1); SODIUM 139 mmol/L (136-145); TCO2 27 mmol/L (25-35)
[2019-01-08] MEDS ORDERED: ENTEREG PO SCH (09:00)
[2019-01-08] MEDS: PERIDEX MT SCH ×2 (10:48→20:44)
[2019-01-08] MEDS: CLINORIL PO SCH (10:48)
[2019-01-08] MEDS: ZOFRAN IV PRN (10:48)
[2019-01-08] MEDS ORDERED: ENTEREG PO ONE (12:10)
[2019-01-08] MEDS: ENTEREG PO SCH ×2 (13:43→20:45)
--- NOTE | 2019-01-08 14:14 | GENERAL SURGERY PROGRESS NOTE ---
DATE: 01/08/2019 SUBJECTIVE: He is postoperative day 1 after open closure of his colostomy. He has been minimally nauseated. Denies vomiting. OBJECTIVE: He is afebrile, heart rate 109. Saw drain is serous in appearance. 60 mL is present. He is making urine satisfactorily. DIAGNOSTIC STUDIES: White count 12,000, hemoglobin 13.7. Chemistry is fine. PLAN: To reduce his IV to 80. Continue with good pulmonary toilet. He is not yet ready for p.o. intake. cc: Lizandro Carrasquillo MD
[2019-01-08] MEDS: LOVENOX SUBQ SCH ×2 (16:34→18:20)
[2019-01-08] MEDS: XOPENEX NEB INH PRN (17:59)
[2019-01-08] MEDS: LIPITOR PO SCH (20:44)
[2019-01-09] MEDS: DILAUDID IV PRN ×3 (01:27→17:54)
[2019-01-09] MEDS: NS 1,000 ML IV SCH ×2 (01:28→14:30)
[2019-01-09] MEDS: SYNTHROID PO SCH (06:28)
[2019-01-09] MEDS: XOPENEX NEB INH PRN ×4 (08:02→19:30)
[2019-01-09] MEDS: PERIDEX MT SCH ×2 (10:41→20:48)
[2019-01-09] MEDS: CLINORIL PO SCH (10:41)
[2019-01-09] MEDS: ENTEREG PO SCH ×2 (10:41→20:48)
--- NOTE | 2019-01-09 11:28 | GENERAL SURGERY PROGRESS NOTE ---
DATE: 01/09/2019 SUBJECTIVE: Mr. Taylor was doing generally well. His temperature is 99.1 degrees, heart rate is about 120, blood pressure 136/83. His lungs sound better today. His abdomen is distended. He has no bowel activity as of yet. His drain is serous. ASSESSMENT: Postoperative ileus persists. We will wait for resolution of his ileus before beginning on clear liquids. Dr. Estrada was available for the weekend. cc: Lizandro Carrasquillo MD
[2019-01-09] MEDS: ZOFRAN IV PRN (12:02)
[2019-01-09] MEDS: LOVENOX SUBQ SCH (17:29)
[2019-01-09] MEDS: LIPITOR PO SCH (20:48)
[2019-01-10] MEDS: DILAUDID IV PRN ×5 (03:36→23:31)
[2019-01-10] MEDS: ZOFRAN IV PRN ×2 (03:36→14:39)
[2019-01-10] MEDS: NS 1,000 ML IV SCH ×2 (07:00→23:31)
[2019-01-10] MEDS: SYNTHROID PO SCH (07:00)
[2019-01-10] MEDS: XOPENEX NEB INH PRN ×4 (08:11→19:16)
[2019-01-10] MEDS: ENTEREG PO SCH ×2 (10:30→21:21)
[2019-01-10] MEDS: PERIDEX MT SCH ×2 (10:30→21:21)
[2019-01-10] MEDS: CLINORIL PO SCH (10:30)
--- NOTE | 2019-01-10 10:53 | PROGRESS NOTE ---
DATE: 01/10/2019 SUBJECTIVE: Mr. Elijah Taylor is a 58-year-old white male patient Dr. Carrasquillo who 3 days ago underwent a colostomy takedown. This morning, his abdomen is distended but he is moving around. He does have a drain which is draining just serosanguineous fluid. OBJECTIVE: His heart rate is 108, blood pressure 152/83, O2 saturation 95% on 2 L nasal cannula O2. His T-max is 99 degrees. He has had no flatus or bowel movement and remains n.p.o. except ice chips. PLAN: We will continue ice chips. Increase his activity. Leave his drains for today. His Pepper has been discontinued. cc: MD Lizandro Dejesus MD
[2019-01-10] MEDS: LOVENOX SUBQ SCH (17:10)
[2019-01-10] MEDS: LIPITOR PO SCH (21:21)
[2019-01-11] MEDS: ZOFRAN IV PRN ×2 (01:45→16:51)
[2019-01-11] MEDS: DILAUDID IV PRN ×5 (02:46→20:23)
[2019-01-11] MEDS: SYNTHROID PO SCH (06:23)
[2019-01-11] MEDS: XOPENEX NEB INH PRN ×4 (07:50→19:00)
--- NOTE | 2019-01-11 08:58 | PROGRESS NOTE ---
DATE: 01/11/2019 Mr. Elijah Taylor underwent a colostomy closure. He is up moving around today. His abdomen still seems to be somewhat distended. He states that he has passed some flatus. His heart rate is 99, blood pressure is 161/89, O2 saturation 95%. He is afebrile. We will plan to advance his diet to full liquids. He is continuing to be active and we will wait for less abdominal distention and more bowel function. cc: MD Lizandro Dejesus MD
[2019-01-11] MEDS: PERIDEX MT SCH ×2 (09:50→20:17)
[2019-01-11] MEDS: CLINORIL PO SCH (09:50)
[2019-01-11] MEDS: ENTEREG PO SCH ×2 (09:50→20:17)
[2019-01-11] MEDS: LOVENOX SUBQ SCH (18:32)
[2019-01-11] MEDS: LIPITOR PO SCH (20:17)
[2019-01-12] MEDS: DILAUDID IV PRN ×3 (00:46→09:34)
[2019-01-12] MEDS: NS 1,000 ML IV SCH ×2 (00:47→03:40)
[2019-01-12] MEDS: SYNTHROID PO SCH (06:05)
[2019-01-12] MEDS: XOPENEX NEB INH PRN ×4 (08:23→19:16)
[2019-01-12] MEDS: PERIDEX MT SCH ×2 (09:17→20:47)
[2019-01-12] MEDS: CLINORIL PO SCH (09:17)
[2019-01-12] MEDS: ENTEREG PO SCH ×2 (09:17→20:48)
[2019-01-12] MEDS: ZOFRAN IV PRN (09:34)
[2019-01-12] MEDS ORDERED: NS 1,000 ML IV SCH (11:30)
--- NOTE | 2019-01-12 14:27 | GENERAL SURGERY PROGRESS NOTE ---
DATE: 01/12/2019 SUBJECTIVE: Mr. Taylor is afebrile. OBJECTIVE: Vital Signs: Heart rate 101, blood pressure 162/88. ASSESSMENT AND PLAN: He has been taking liquids satisfactory. He has been passing flatus. He has had some liquid bowel movement. His drain has put out only serous fluid. The plan is to take out his drain and advance his diet to solids. cc: Lizandro Carrasquillo MD
[2019-01-12] MEDS: NORCO-7.5 PO PRN (16:19)
[2019-01-12] MEDS: LOVENOX SUBQ SCH (18:08)
[2019-01-12] MEDS: LIPITOR PO SCH (20:48)
[2019-01-12 21:03] LABS: UR AMPHETAMINES QUAL NONE DETECTED (NONE DETECT); UR BARBITUATES QUAL NONE DETECTED (NONE DETECT); UR BENZODIAZEPIN QUAL NONE DETECTED (NONE DETECT); UR CANNABINOIDS QUAL NONE DETECTED (NONE DETECT); UR COCAINE QUAL NONE DETECTED (NONE DETECT); UR METHADONE QUAL NONE DETECTED (NONE DETECT); UR OPIATES QUAL PRESUMPTIVE POSITIVE (NONE DETECT); UR OXYCODONE QUAL NONE DETECTED (NONE DETECT); UR PCP QUAL NONE DETECTED (NONE DETECT)
[2019-01-13] MEDS: NORCO-7.5 PO PRN (05:52)
[2019-01-13] MEDS: SYNTHROID PO SCH (05:52)
[2019-01-13 07:25] VITALS: BP 152/126
--- NOTE | 2019-01-13 10:00 | GENERAL SURGERY PROGRESS NOTE ---
DATE: 01/13/2019 Mr. Taylor continues to pass gas. He is eating solid food. His bowels have not moved yet, but he is passing flatus. His wound is fine. I feel he can be discharged home. He is afebrile. He will use MiraLAX at home, and he will return to see me in the office in a week. Instructed him regarding his lifting, not to lift over 15 pounds. He is not to drive yet. We will remove his joshua when he returns in a week. cc: Lizandro Carrasquillo MD
== END 2019-01-13 09:17 | disposition home or self-care (01) | DRG 345 ==
LOC: SURHOLD 11:10 → 4N 14:29
PROVIDERS: ADMIT Surgery; ATTEND Surgery
CPT/HCPCS: 80048; 80101; 80301; 80307; 80324; 80345; 80346; 80353; 80358; 80361; 80365; 81001; 83992; 85025; 85027; 88304; 88313; 93005; 94640; 94760; 94761; 94799; A9270; G0431; G0434; G0479; G0480; J0131; J0330; J1170; J1335; J1650; J1885; J2270; J2370; J2405; J2550; J7030; J7120